=== PATIENT | female | born 1980 ===

== ENCOUNTER 2025-01-29 09:54 | Emergency (ER) | payer OTHER, SELFPAY ==
[2025-01-29 10:02] VITALS: BP 143/99
--- NOTE | 2025-01-29 10:36 | ED.GENMED ---
History of Present Illness
<Chetan Bell DO Rainer - Last Filed: 01/29/25 16:02>
General
Chief Complaint: Musculo-Skeletal Complaint
Time Seen by Provider: 01/29/25 10:36
History of Present Illness
History of Present Illness:
FOCUSED PAST MEDICAL HISTORY
- GERD, hyperlipidemia
REVIEW OF OLD RECORDS
- No old records available for review other than a chest x-ray from in [facility] earlier this year which was unremarkable
Note:
CHIEF COMPLAINT(S)
Severe neck pain and numbness.
HISTORY OF PRESENT ILLNESS
The patient is a 44-year-old female who presents with severe neck pain and numbness, symptoms that have progressively worsened over the past month. The patient reports undergoing physical therapy which included a maneuver where pressure was applied
to her head, exacerbating her symptoms to the point where she experiences severe pain and is only able to sleep for approximately three hours per night. She tried steroid treatment (prednisone) and muscle relaxants, which helped temporarily for
about a week before symptoms returned. The patient reports a history of having similar symptoms on the opposite side a few years ago, for which an epidural shot was effective. Current symptoms include exacerbated pain with head movements and
numbness, as noted during physical evaluation.
PAST MEDICAL AND SURIGICAL HISTORY
The patient has a history of similar symptoms on the opposite side of the neck, treated previously with an epidural injection.
PHYSICAL EXAM
General: Alert, appears rather uncomfortable
Skin: Warm, dry.
Head: Normocephalic, atraumatic.
Neck: Supple, trachea midline. Markedly decreased active range of motion into rotation of the neck due to ongoing pain
Eye, Ears, Nose, Mouth, and Throat: Oral mucosa moist.
Cardiovascular: Normal peripheral perfusion, no edema.
Respiratory: Respirations are non-labored.
Gastrointestinal: Abdomen nondistended.
Back: Normal range of motion, normal alignment.
Musculoskeletal: Limited range of motion due to pain, normal strength.
Neurological: Alert and oriented to person, place, time, and situation. Decreased sensation noted on the thumb of the left hand, there is also decreased strength in a median, radial, and ulnar nerve distribution�mostly radial aspect
Psychiatric: Tearful
PROBLEM LIST
Acute Problems:
- Severe neck pain.
- Numbness and decreased sensation in the left hand.
PLAN
1. Administer IV medications, including Toradol, a non-narcotic for inflammation and pain.
2. Consider administration of Dilaudid, based on the level of discomfort.
3. Discuss the possibility of MRI with radiology to evaluate the spine and nervous structures for potential herniated disc.
4. Referral to the previous provider if necessary for further evaluation and management steps, including consideration of epidural steroid injections if indicated by MRI findings.
DIFFERENTIAL DIAGNOSIS
The Differential Diagnosis includes, in no particular order and is not limited to:
- Cervical radiculopathy
- Herniated cervical disc
- Spinal stenosis
- Degenerative disc disease
- Cervical spondylosis
- Muscle strain
- Neural impingement
- Cervical myelopathy
- Brachial plexus neuropathy
- Thoracic outlet syndrome
I discussed case with Dr. Linder and we will try to get an MRI today
RADIOLOGY
- MRI cervical spine
UPDATE
- At 12:05 PM, I reassessed patient, she reports some improvement initially but then pain returned. Will give additional Toradol and Dilaudid.
- At 1:10 PM, patient started to vomit while in MRI, will give Zofran, Reglan, Benadryl and try to send back for MRI
SUMMARY OF ENCOUNTER
The patient presented to the emergency department with severe neck pain and numbness. Symptoms have progressively worsened over the past month. The patient attempted various treatments, including physical therapy, steroids, and muscle relaxants, but
with only temporary relief. While she was in the emergency department, the patient experienced vomiting during an MRI. After treatment, symptoms showed improvement, but mild weakness and sensory deficits persisted in the left upper extremity. An MRI
is being arranged for further evaluation.
DISPOSITION
Discharge
ASSESSMENT
The patients symptoms suggest possible cervical radiculopathy or herniated cervical disc causing nerve irritation.
EMERGENCY TREATMENTS ADMINISTERED
Medications were administered including Toradol (ketorolac) for pain and inflammation management.
MANAGEMENT OF THE PATIENTS CARE WAS DISCUSSED WITH
Arrangements are being made for an MRI later today.
PLAN
1. Continue the current treatment plan, including pain management. 2. Arrange an MRI to further evaluate the neck and nervous structures. 3. Follow-up with An as scheduled for further evaluation and management.
FOLLOW-UP INSTRUCTIONS
Please follow up with Zeenat this coming week.
MEDICATION RECONCILIATION
A prescription for narcotic pain medication was sent to the patients pharmacy for management of severe pain.
MEDICAL DECISION MAKING
-Complexity of Data Reviewed: Chronic conditions affecting care with possible cervical radiculopathy or herniated cervical disc from DD[facility].
-Data:
Category 1: Arranged MRI for further evaluation of cervical spine.
Category 3: Ongoing discussions regarding management plan and MRI with radiology team.
-Risk: Prescription medication was prescribed for pain management. Escalation of care including admission/observation was considered, but the patient was deemed safe for outpatient management with close follow-up, given improvement in symptoms and
stable examination findings.
DIAGNOSIS
1. Cervical Radiculopathy (M54.12)
Course
<Chetan Spear, - Last Filed: 01/29/25 16:02>
Orders/Labs/Results
Orders:
Orders
01/29/25 10:57
Dexamethasone Sod Phosphate [Decadron] 10 mg IV NOW STA
HYDROmorphone [Dilaudid] 1 mg IV NOW STA
Ketorolac [Toradol] 15 mg IV NOW STA
Ondansetron Injectable [Zofran] 4 mg IV NOW STA
01/29/25 11:39
MR Cervical Spine Without Urgent
Comment:
Reason For Exam: severe neck pain w/ new LUE weakness;Spokew/K[place]
Recent pill cam endoscopy?: No
01/29/25 12:08
HYDROmorphone [Dilaudid] 1 mg IV NOW STA
Ketorolac [Toradol] 15 mg IV NOW STA
01/29/25 13:05
Ondansetron Injectable [Zofran] 4 mg .ROUTE .STK-MED ONE
Ondansetron Injectable [Zofran] 4 mg IV NOW STA
01/29/25 13:26
Diphenhydramine [Benadryl] 25 mg IV NOW STA
Metoclopramide [Reglan] 10 mg IV NOW STA
Vital Signs
Initial and Last Documented VS:
Initial Vital Signs
Temp Pulse Resp BP Pulse Ox
98.3 F 86 18 143/99 97
01/29/25 10:02 01/29/25 10:02 01/29/25 10:02 01/29/25 10:02 01/29/25 10:02
Last Documented Vital Signs
Temp Pulse Resp BP Pulse Ox
98.3 F 82 18 140/84 98
01/29/25 10:02 01/29/25 17:40 01/29/25 17:40 01/29/25 17:40 01/29/25 17:40
<Christa Carter MD - Last Filed: 01/29/25 20:08>
Orders/Labs/Results
Orders:
Orders
01/29/25 10:57
Dexamethasone Sod Phosphate [Decadron] 10 mg IV NOW STA
HYDROmorphone [Dilaudid] 1 mg IV NOW STA
Ketorolac [Toradol] 15 mg IV NOW STA
Ondansetron Injectable [Zofran] 4 mg IV NOW STA
01/29/25 11:39
MR Cervical Spine Without Urgent
Comment:
Reason For Exam: severe neck pain w/ new LUE weakness;Spokew/Niyah
Recent pill cam endoscopy?: No
01/29/25 12:08
HYDROmorphone [Dilaudid] 1 mg IV NOW STA
Ketorolac [Toradol] 15 mg IV NOW STA
01/29/25 13:05
Ondansetron Injectable [Zofran] 4 mg .ROUTE .STK-MED ONE
Ondansetron Injectable [Zofran] 4 mg IV NOW STA
01/29/25 13:26
Diphenhydramine [Benadryl] 25 mg IV NOW STA
Metoclopramide [Reglan] 10 mg IV NOW STA
Vital Signs
Initial and Last Documented VS:
Initial Vital Signs
Temp Pulse Resp BP Pulse Ox
98.3 F 86 18 143/99 97
01/29/25 10:02 01/29/25 10:02 01/29/25 10:02 01/29/25 10:02 01/29/25 10:02
Last Documented Vital Signs
Temp Pulse Resp BP Pulse Ox
98.3 F 82 18 140/84 98
01/29/25 10:02 01/29/25 17:40 01/29/25 17:40 01/29/25 17:40 01/29/25 17:40
<Chetan Spear DO - Last Filed: 01/29/25 16:02>
*Pulse Oximetry
SaO2: 97
Oxygen Mode of Delivery: Room air
<Christa Carter MD - Last Filed: 01/29/25 20:08>
*Radiology
Radiology exam reviewed: radiology read reviewed
<Christa Carter MD - Last Filed: 01/29/25 20:08>
Update Note
Update Note:
Patient appears well and comfortable. MRI shows nerve root impingement. Patient tells me she has an appointment with orthopedic spinal doctor this Saturday. She will be given a copy of her MRI report
ED Attending Note
<Chetan Spear, DO - Last Filed: 01/29/25 16:02>
-
Portions of this chart may have been created with voice recognition software.� Occasional wrong word or��sound alike� substitutions may have occurred due to the inherent limitations of voice recognition software.
Discharge Plan
Departure
Patient Disposition: Home (Routine Discharge)
Date of Disposition: 01/29/25
Time of Disposition: 20:08
Instructions: Radiculopathy of the neck and back (including sciatica) (DC), BLOOD PRESSURE
Prescriptions:
New
oxycodone-acetaminophen [Percocet] 5-325 mg tablet
1 - 2 tab PO Q8H PRN (Reason: Pain) Qty: 14 0RF
Referrals:
Santa Vanegas PA-C [Family Provider]
Activity Restrictions/Additional Instructions:
Follow-up with your doctors through Psychiatric. Return here if worse or other concerns. I sent a prescription for narcotic to your pharmacy. If you take the narcotic, I recommend taking something like MiraLAX to help with constipation.
Interventions
Interventions:
*Risk Screen - Suicide Last Done: 01/29/25 18:03
*General Assessment Last Done: 01/29/25 18:03
*Neglect/Abuse Screening Last Done: 01/29/25 18:03
*ED- Fall Risk Assessment Last Done: 01/29/25 11:33
*ED COVID-19 Vaccine History Last Done: 01/29/25 10:02
*ED Influenza Vaccine History Last Done: 01/29/25 10:02
ED-Musculoskeletal Assessment Last Done: 01/29/25 11:36
Discharge Date and Time
Print Language: UGANDAN
[2025-01-29] MEDS: ZOFRAN 4 MG IV ×2 (11:08→13:06)
[2025-01-29] MEDS: DILAUDID 1 MG IV ×2 (11:08→12:13)
[2025-01-29] MEDS: TORADOL 15 MG IV ×2 (11:08→12:12)
[2025-01-29] MEDS: DECADRON 10 MG IV (11:08)
[2025-01-29 11:18] VITALS: BP 141/86
[2025-01-29 12:00] VITALS: BP 128/83
[2025-01-29] MEDS: BENADRYL 25 MG IV (13:40)
[2025-01-29] MEDS: REGLAN 10 MG IV (13:40)
[2025-01-29 17:40] VITALS: BP 140/84
[2025-01-29 20:13] VITALS: BP 147/94
== END 2025-01-29 20:41 | disposition home or self-care (01) ==
LOC: EMR 09:54
PROVIDERS: EMERGENCY PHYSICIAN Emergency Medicine; FAMILY PHYSICIAN Family Medicine
DX: M54.12 Radiculopathy, cervical region (principal); E78.5 Hyperlipidemia, unspecified; K21.9 Gastro-esophageal reflux disease without esophagitis
CPT/HCPCS: 96374; 96375; 96376; 99285; 72141